=== PATIENT | female | born 1975 | race Caucasian/White ===

== ENCOUNTER 2020-03-09 08:46 | Emergency (ER) | payer OTHER ==
[~2020-03-09] VITALS: Ht 172.7 cm; Wt 104.3 kg
[2020-03-09 08:46] VITALS: BP 138/78
[2020-03-09] MEDS ORDERED: 0.9 % SODIUM CHLORIDE 10 ML DISP.SYRIN. IV PRN (09:15)
--- NOTE | 2020-03-09 09:16 | EKG ---
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
[2020-03-09 09:46] LABS: BASO % 1 % (0-3); EOS # 0.1 x10^3/uL (0.0-0.7); EOS % 2 % (0-3); HEMATOCRIT 40.6 % (36.0-47.0); HEMOGLOBIN 13.8 g/dL (12.0-15.5); LYMPH # 1.4 x10^3/uL (1.0-4.8); LYMPH % 20 % (24-48); MEAN CORPUSCULAR HEMOGLOBIN 32 pg (25-35); MEAN CORPUSCULAR HGB CONC 34 g/dL (31-37); MEAN CORPUSCULAR VOLUME 94 fL (79-100); MONO # 0.4 x10^3/uL (0.0-1.1); MONO % 5 % (0-9); NEUT # 5.2 x10^3uL (1.8-7.7); NEUT % 73 % (31-73); PLATELET COUNT 155 x10^3/uL (140-400); RED CELL DISTRIBUTION WIDTH 12.7 % (11.5-14.5); WHITE BLOOD COUNT 7.1 x10^3/uL (4.0-11.0)
--- NOTE | 2020-03-09 09:49 | RAD ---
INDICATION: Shortness of air COMPARISON: None. FINDINGS: Single view of chest obtained. Hypoexpanded exam without definite focal airspace consolidation. Cardiac silhouette is mildly prominent but likely exaggerated by portable technique. IMPRESSION: * No focal airspace consolidation or edema. Electronically signed by: Bishop Davenport MD (03/09/2020 9:46 AM) [id number]
[2020-03-09 09:53] LABS: CALCIUM 8.8 mg/dL (8.5-10.1); CREATININE 0.7 mg/dL (0.6-1.0); GFR 89.7; POTASSIUM 3.2 mmol/L (3.5-5.1)
[2020-03-09 10:01] LABS: ALBUMIN 3.5 g/dL (3.4-5.0); ALBUMIN/GLOBULIN RATIO 1.1 (1.0-1.7); TOTAL BILIRUBIN 0.8 mg/dL (0.2-1.0); TOTAL PROTEIN 6.7 g/dL (6.4-8.2)
[2020-03-09 10:14] LABS: BACTERIA,URINE 0 /HPF (0-FEW); BILIRUBIN,URINE NEG (NEG); CLARITY,URINE CLEAR; COLOR,URINE YELLOW; GLUCOSE,URINE NEG (NEG); NITRITE,URINE NEG (NEG); SQUAMOUS EPITHELIAL CELL,UR OCC /LPF; UROBILINOGEN,URINE 0.2 mg/dL (0.2 mg/dL); WBC,URINE RARE /HPF (0-4)
--- NOTE | 2020-03-09 11:49 | PHYS DOC ---
Past History Past Medical History: Hypertension, Hypothyroid Past Surgical History: , Hysterectomy Alcohol Use: Occasionally General Adult EDM: Chief Complaint: MULTIPLE COMPLAINTS HPI: HPI: Patient is a 45 year old female who presented to the ER today for evaluation of nonproductive cough, shortness of air and sore throat since yesterday. Patient said her daughter who work at [employer] and there are several employee there were tested positive for COVID-19. Patient's daughter is not sick. Patient also complained of chest pain since yesterday. She denied any family history of heart disease, no history of diabetic, she is not a smoker. She does have history of HTN. No recent travel or operation. Review of Systems: Review of Systems: Constitutional: Denies fever or chills Eyes: Denies change in visual acuity HENT: Denies nasal congestion, positive for sore throat Respiratory: Positive for nonproductive cough and shortness of breath Cardiovascular: Positive for chest pain, no edema GI: Denies abdominal pain, nausea, vomiting, bloody stools or diarrhea : Denies dysuria Musculoskeletal: Denies back pain or joint pain Integument: Denies rash Neurologic: Denies headache, focal weakness or sensory changes Endocrine: Denies polyuria or polydipsia Lymphatic: Denies swollen glands Psychiatric: Denies depression or anxiety Heart Score: HEART Score for Chest Pain: HEART Score for Chest Pain Response (Comments) Value History Slighlty/Non-Suspicious 0 ECG Normal 0 Age >45 - < 65 1 Risk Factors 1 or 2 Risk Factors 1 Troponin < Normal Limit 0 Total 2 Risk Factors: Risk Factors: DM, Current or recent (<one month) smoker, HTN, HLP, family history of CAD, obesity. Risk Scores: Score 0 - 3: 2.5% MACE over next 6 weeks - Discharge Home Score 4 - 6: 20.3% MACE over next 6 weeks - Admit for Clinical Observation Score 7 - 10: 72.7% MACE over next 6 weeks - Early Invasive Strategies Current Medications: Current Meds: Current Medications Medications (Trade) Dose Ordered Sig/Una Start Time Stop Time Status Last Admin Dose Admin Sodium Chloride (Normal Saline Flush) 10 ml QSHIFT PRN 03/09/20 09:15 Allergies: Allergies: Allergies Coded Allergies Type Severity Reaction Last Updated Verified sulfamethoxazole Allergy Unknown SWELLING RASH 03/09/20 Yes trimethoprim Allergy Unknown SWELLING RASH 03/09/20 Yes Physical Exam: PE: Constitutional: Well developed, well nourished, no acute distress, non-toxic appearance. [] HENT: Normocephalic, atraumatic, bilateral external ears normal, oropharynx moist, no oral exudates, nose normal. [] Eyes: PERRLA, EOMI, conjunctiva normal, no discharge. [] Neck: Normal range of motion, no tenderness, supple, no stridor. [] Cardiovascular:Heart rate regular rhythm, no murmur [] Lungs & Thorax: Bilateral breath sounds clear to auscultation [] Abdomen: Bowel sounds normal, soft, no tenderness, no masses, no pulsatile masses. [] Skin: Warm, dry, no erythema, no rash. [] Back: No tenderness, no CVA tenderness. [] Extremities: No tenderness, no cyanosis, no clubbing, ROM intact, no edema. [] Neurologic: Alert and oriented X 3, normal motor function, normal sensory function, no focal deficits noted. [] Psychologic: Affect normal, judgement normal, mood normal. [] Current Patient Data: Labs: Laboratory Tests Test 03/09/20 09:26 03/09/20 09:39 White Blood Count 7.1 x10^3/uL (4.0-11.0) Red Blood Count 4.30 x10^6/uL (3.50-5.40) Hemoglobin 13.8 g/dL (12.0-15.5) Hematocrit 40.6 % (36.0-47.0) Mean Corpuscular Volume 94 fL (79-100) Mean Corpuscular Hemoglobin 32 pg (25-35) Mean Corpuscular Hemoglobin Concent 34 g/dL (31-37) Red Cell Distribution Width 12.7 % (11.5-14.5) Platelet Count 155 x10^3/uL (140-400) Neutrophils (%) (Auto) 73 % (31-73) Lymphocytes (%) (Auto) 20 % (24-48) L Monocytes (%) (Auto) 5 % (0-9) Eosinophils (%) (Auto) 2 % (0-3) Basophils (%) (Auto) 1 % (0-3) Neutrophils # (Auto) 5.2 x10^3uL (1.8-7.7) Lymphocytes # (Auto) 1.4 x10^3/uL (1.0-4.8) Monocytes # (Auto) 0.4 x10^3/uL (0.0-1.1) Eosinophils # (Auto) 0.1 x10^3/uL (0.0-0.7) Basophils # (Auto) 0.0 x10^3/uL (0.0-0.2) Prothrombin Time 10.1 SEC (9.4-11.4) Prothrombin Time INR 1.0 (0.9-1.1) Activated Partial Thromboplast Time 26 SEC (23-33) D-Dimer (Sanaz) < 0.19 mg/L (0.00-0.50) Sodium Level 141 mmol/L (136-145) Potassium Level 3.2 mmol/L (3.5-5.1) L Chloride Level 104 mmol/L (98-107) Carbon Dioxide Level 28 mmol/L (21-32) Anion Gap 9 (6-14) Blood Urea Nitrogen 16 mg/dL (7-20) Creatinine 0.7 mg/dL (0.6-1.0) Estimated GFR (Cockcroft-Gault) 89.7 BUN/Creatinine Ratio 23 (6-20) H Glucose Level 109 mg/dL (70-99) H Lactic Acid Level 1.0 mmol/L (0.4-2.0) Calcium Level 8.8 mg/dL (8.5-10.1) Total Bilirubin 0.8 mg/dL (0.2-1.0) Aspartate Amino Transferase (AST) 14 U/L (15-37) L Alanine Aminotransferase (ALT) 23 U/L (14-59) Alkaline Phosphatase 46 U/L (46-116) Troponin I Quantitative < 0.017 ng/mL (0-0.055) Total Protein 6.7 g/dL (6.4-8.2) Albumin 3.5 g/dL (3.4-5.0) Albumin/Globulin Ratio 1.1 (1.0-1.7) Lipase 120 U/L (73-393) Urine Collection Type Unknown Urine Color Yellow Urine Clarity Clear Urine pH 6.0 Urine Specific [place] 1.015 Urine Protein Neg (NEG-TRACE) Urine Glucose (UA) Neg mg/dL (NEG) Urine Ketones (Stick) Neg mg/dL (NEG) Urine Blood Trace (NEG) Urine Nitrite Neg (NEG) Urine Bilirubin Neg (NEG) Urine Urobilinogen Dipstick 0.2 mg/dL (0.2 mg/dL) Urine Leukocyte Esterase Neg (NEG) Urine RBC 1-2 /HPF (0-2) Urine WBC Rare /HPF (0-4) Urine Squamous Epithelial Cells Occ /LPF Urine Bacteria 0 /HPF (0-FEW) Vital Signs: Vital Signs Date Time Temp Pulse Resp B/P (MAP) Pulse Ox O2 Delivery O2 Flow Rate FiO2 03/09/20 08:46 98.4 75 20 138/78 (98) 98 Room Air EKG: EKG: EKG was done at 906, heart rate of 74 bpm, normal sinus rhythm, no ST segment elevation. Normal axis, normal QT interval. EKG was read by this physician. [] Radiology/Procedures: Radiology/Procedures: [][address] [address] IMAGING REPORT Signed PATIENT: VISHNU ALLEN ACCOUNT: [id number] : 1975 LOCATION: ER AGE: 45 SEX: F EXAM STATUS: REG ER ORD. PHYSICIAN: CHLOE STARKEY DO REASON: soa, cough PROCEDURE: PORTABLE CHEST 1V INDICATION: Shortness of air COMPARISON: None. FINDINGS: Single view of chest obtained. Hypoexpanded exam without definite focal airspace consolidation. Cardiac silhouette is mildly prominent but likely exaggerated by portable technique. IMPRESSION: * No focal airspace consolidation or edema. Electronically signed by: Alicia Hinton MD (03/09/2020 9:46 AM) [id number] DICTATED AND SIGNED BY: ALICIA HINTON MD DATE: 03/09/20 0946 CC: KIRTI NAVA MD; CHLOE STARKEY DO ~ Course & Med Decision Making: Course & Med Decision Making Pertinent Labs and Imaging studies reviewed. (See chart for details) CHEST PAIN, NONSPECIFIC: The patient presents today with chest pain lasting FOR A FEW SECONDS. The quality of the pain is very atypical for acute coronary syndrome. Additionally, the patient has minimal risk factors for coronary artery disease with a suggestion of good exercise tolerance and does not have ongoing chest pain. Given the duration of the chest pain with cardiac enzymes returning within normal limits, I do feel that from a risk stratification standpoint, the patient can be safely discharged home for outpatient evaluation by the primary care physician. The patient, however, fully understands that the evaluation today in no way rules out coronary artery disease as a possibility and that close followup is necessary as a component of a complete evaluation. The patient also understands that should the pain change, or become more frequent, more intense, or should the patient develop new symptoms, the patient is instructed to return immediately to the emergency room for reevaluation. However, at this time, given the lack of significant risk factors in conjunction with an atypical history in conjunction with normal enzymes despite the duration of pain and an unchanged or normal EKG, I do feel that the information available to us at this time suggests that this is unlikely to represent acute plaque rupture and that the risk of morbidity or mortality is low. Also considered today was the possibility of a pneumothorax, pneumonia, pulmonary embolus, mediastinitis, and thoracic aortic dissection. However, after careful consideration of the p atient's clinical history and presentation and findings, there is no evidence to suggest any of these as a likely diagnosis and therefore feel that the continued pursuit of these etiologies is not warranted at this time. Dragon Disclaimer: [place] Disclaimer: This electronic medical record was generated, in whole or in part, using a voice recognition dictation system. Departure Departure: Impression: Primary Impression: Chest pain Additional Impression: Bronchitis Disposition: 01 HOME/RESIDENCE PRIOR TO ADM Condition: STABLE Referrals: KIRTI NAVA MD (PCP) Patient Instructions: Acute Bronchitis, Chest Pain (Nonspecific) Additional Instructions: Thank you for visiting [facility]. We appreciate you trusting us with your care. If any additional problems come up please don't hesitate to return to visit us. Follow up with your primary care provider so they can plan additional care if needed and know about the problem that you had today. If symptoms worsen come back to the Emergency Department. Any concerning symptoms that start such as chest pain, shortness of air, weakness or numbness on one side of the body, running high fevers or any other concerning symptoms return to the ER. You have a viral syndrome which may include symptoms like muscle aches, fevers, chills, runny nose, cough, sneezing, sore throat, nausea, vomiting, or diarrhea. One of the potential viruses that you may have is SARS-CoV-2, the virus that causes COVID-19, also known as the Coronavirus. You are just as likely to have a different viral infection such as the common cold, flu, etc. Most patients with the Coronavirus have mild symptoms and recover on their own. Resting, staying hydrated, and sleep based on known cases can be helpful. As of todays visit, you are well enough to go home and treat your symptoms with oral fluids and over the counter medications. Coronavirus testing is not performed on most people with mild symptoms who are being discharged from the emergency department. If Coronavirus testing was performed today the results will not be available for possibly up to 3-4 days. If your result is positive you will be contacted. Please follow the following precautions at home: 1. Stay home except to get medical care. 2. As advised by the CDC, we recommend that you stay in your home and minimize contact with other people. We do not want you to spread the infection. 3. Those who are older or have significant medical issues may have more severe symptoms from this infection. We recommend self-isolation FOR AT LEAST 7 DAYS after your 1st day of symptoms. AFTER you feel better please wait AT LEAST ANOTHER WEEK before returning to regular activities and being around other people. 4. IF you become sicker and have difficulty breathing, chest pain, are unable to eat/drink, severe vomiting, diarrhea, or weakness you may need to return to the Emergency Department. 5. You should restrict activities outside of your home, except for getting medical care. DO NOT go to work, school, or public areas. Avoid using public transportation, ride sharing, or taxis. 6. Separate yourself from other people in your home. You should use a separate bathroom if possible. 7. Avoid sharing personal household items such as dishes, cups, eating utensils, towels, etc. 8. Clean all high touch surfaces every day (door knobs, counter tops, etc). Use a household cleaning spray or wipe per label instructions. 9. Clean your hands often. Wash your hands with soap and water for at least 20 seconds. 10. Cover your mouth and nose when you cough or sneeze. 11. Throw used tissues in the trash and immediately wash your hands. For additional resources please visit the CDC website or the [facility] ([phone]). COVID-19 Assessment COVID-19 Patient Risks: Age 65 or older: No Sign of co-morbidity: No Exp to person + for COVID: No Exp to PUI: Yes Travel from affected area: No Lower respiratory symptoms: No Fever: No Other: No PPE Use: Full PPE with N95 mask or PAPR: Yes CHLOE STARKEY DO March 09, 2020 11:48
--- NOTE | 2020-03-11 16:15 | EKG ---
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
== END 2020-03-09 12:00 | disposition home or self-care (01) ==
LOC: ER 08:46
DX: J40 Bronchitis, not specified as acute or chronic (principal); R07.89 Other chest pain; Z20.828 Contact with and (suspected) exposure to other viral communicable diseases; I10 Essential (primary) hypertension; E03.9 Hypothyroidism, unspecified; Z88.2 Allergy status to sulfonamides; Z88.1 Allergy status to other antibiotic agents
CPT/HCPCS: 36415; 71045; 80053; 81001; 83605; 83690; 84484; 85025; 85379; 85384; 85610; 85730; 87040; 93005; 99285; U0003

== ENCOUNTER 2020-12-02 12:28 | Emergency (ER) | payer OTHER ==
[~2020-12-02] VITALS: Ht 172.7 cm; Wt 104.3 kg
[2020-12-02 12:40] VITALS: BP 188/89
--- NOTE | 2020-12-02 12:53 | PHYS DOC ---
Past History Past Medical History: Hypertension, Hypothyroid Past Surgical History: , Hysterectomy Alcohol Use: Occasionally Adult General Chief Complaint Chief Complaint: KNEE INJURY HPI HPI Patient is a 45-year-old female patient who reports of walking this morning and she is open eyes, hyperextending her left knee, and twisting her left ankle. States she was able to get up after the fall but was having discomfort in her leg. States she has had some increased swelling and discomfort when trying to flex her left ankle. States most discomfort to knee is posterior. She had taken 800 mg ibuprofen approximately 2 hours ago and reports some improvement in discomfort. Denies hitting head, denies additional discomfort other than to ankle and knee. Denies paresthesia Review of Systems Review of Systems Constitutional: Denies fever or chills [] Respiratory: Denies cough or shortness of breath [] Cardiovascular: No additional information not addressed in HPI [] GI: Denies abdominal pain, nausea, vomiting, bloody stools or diarrhea [] : Denies dysuria or hematuria [] Musculoskeletal: Denies back pain. States pain to left ankle and left knee. Integument: Denies rash or skin lesions [] Neurologic: Denies headache, focal weakness or sensory changes [] All other systems were reviewed and found to be within normal limits, except as documented in this note. Allergies Allergies Allergies Coded Allergies Type Severity Reaction Last Updated Verified sulfamethoxazole Allergy Unknown SWELLING RASH 03/09/20 Yes trimethoprim Allergy Unknown SWELLING RASH 03/09/20 Yes Physical Exam Physical Exam Constitutional: Well developed, well nourished, no acute distress, non-toxic appearance. [] Neck: Normal range of motion, no tenderness, supple, no stridor. [] Cardiovascular:Heart rate regular rhythm, no murmur [] Lungs & Thorax: Bilateral breath sounds clear to auscultation [] Skin: Warm, dry, no erythema, no rash. [] Back: No tenderness, no CVA tenderness. [] Extremities: no cyanosis, no clubbing, ROM intact, no edema. [] Tenderness over lateral malleolus. no tenderness on palpation to posterior knee. Minimal palpation to left medial knee patellar Neurologic: Alert and oriented X 3, normal motor function, normal sensory function, no focal deficits noted. [] Psychologic: Affect normal, judgement normal, mood normal. [] EKG EKG [] Radiology/Procedures Radiology/Procedures PROCEDURE: KNEE LEFT 3V EXAM: Left knee, 3 views. HISTORY: Fall. Pain. COMPARISON: None. FINDINGS: 3 views of the left knee are obtained. There is no fracture, dislocation or subluxation. IMPRESSION: No acute osseous finding. Electronically signed by: Elvia Thomas MD (12/02/2020 1:06 PM) [id number] PROCEDURE: ANKLE LEFT 3V Study: XR EXAM OF ANKLE_LEFT 3V Indication: Fall. Comparison: None. Findings: No acute fracture seen at the ankle or involving the visualized foot. Symmetric ankle mortise. Unremarkable talar dome. Asymmetric soft tissue prominence at the lateral ankle. Impression: Soft tissue edema predominantly at the lateral ankle however no acute fracture is identified or traumatic malalignment. Electronically signed by: ANDREEA MCNAMARA MD (12/02/2020 1:08 PM) [id number] DICTATED AND SIGNED BY: ANDREEA MCNAMARA MD DATE: 12/02/20 1306 DICTATED AND SIGNED BY: ELVIA THOMAS MD DATE: 12/02/20 1306 CC: KIRTI NAVA MD; RAY LOREDO APRN ~MTH0 0 [] Heart Score Risk Factors: Risk Factors: DM, Current or recent (<one month) smoker, HTN, HLP, family history of CAD, obesity. Risk Scores: Risk Factors: DM, Current or recent (<one month) smoker, HTN, HLP, family history of CAD, obesity. Course & Med Decision Making Course & Med Decision Making Pertinent Labs and Imaging studies reviewed. (See chart for details) []Reviewed imaging with patient, without acute fracture noted. Will plan to place in knee immobilizer and lion wrap ankle, with knee hyperextension likely cause of discomfort. Will recommend follow up with PCP and/or ortho as needed. Patient in agreement with plan without further questions. Dragon Disclaimer Dragon Disclaimer This electronic medical record was generated, in whole or in part, using a voice recognition dictation system. Departure Departure: Impression: Primary Impression: Knee hyperextension injury Additional Impression: Ankle sprain Disposition: 01 DC HOME SELF CARE/HOMELESS Condition: STABLE Referrals: KIRTI NAVA MD (PCP) Patient Instructions: Ankle Sprain, [id number], Knee Immobilizer, [id number] Additional Instructions: As we discussed, wear the knee immobilizer for the next 7 days. Continue to take ibuprofen for the discomfort and swelling. Continue to wear the Lion wrap around your ankle for the next 7 days as well, try to limit your walking on that leg until it can heal. If you continue to have discomfort after a week, follow-up with your primary care provider or consider following up with orthopedics for further imaging. Problem Qualifiers Primary Impression: Knee hyperextension injury Encounter type: initial encounter Laterality: left Qualified Codes: S89.82XA - Other specified injuries of left lower leg, initial encounter Additional Impression: Ankle sprain Encounter type: initial encounter Involved ligament of ankle: unspecified ligament Laterality: right Qualified Codes: S93.401A - Sprain of unspecified ligament of right ankle, initial encounter RAY LOREDO APRN Dec 02, 2020 12:53
--- NOTE | 2020-12-02 13:09 | RAD ---
EXAM: Left knee, 3 views. HISTORY: Fall. Pain. COMPARISON: None. FINDINGS: 3 views of the left knee are obtained. There is no fracture, dislocation or subluxation. IMPRESSION: No acute osseous finding. Electronically signed by: Elvia Marques MD (12/02/2020 1:06 PM) [id number]
--- NOTE | 2020-12-02 13:10 | RAD ---
Study: XR EXAM OF ANKLE_LEFT 3V Indication: Fall. Comparison: None. Findings: No acute fracture seen at the ankle or involving the visualized foot. Symmetric ankle mortise. Unrema rkable talar dome. Asymmetric soft tissue prominence at the lateral ankle. Impression: Soft tissue edema predominantly at the lateral ankle however no acute fracture is identified or traum atic malalignment. Electronically signed by: ANDREEA MCNAMARA MD (12/02/2020 1:08 PM) [id number]
== END 2020-12-02 13:28 | disposition home or self-care (01) ==
LOC: ER 12:28
DX: S93.401A Sprain of unspecified ligament of right ankle, initial encounter (principal); S89.82XA Other specified injuries of left lower leg, initial encounter; I10 Essential (primary) hypertension; E03.9 Hypothyroidism, unspecified; Z88.2 Allergy status to sulfonamides; Z88.1 Allergy status to other antibiotic agents; X50.9XXA Other and unspecified overexertion or strenuous movements or postures, initial encounter; Y93.89 Activity, other specified; Y92.89 Other specified places as the place of occurrence of the external cause; Y99.8 Other external cause status
CPT/HCPCS: 29505; 73562; 73610; 99284